=== PATIENT | male | born 1950 | race Caucasian/White ===

== ENCOUNTER 2017-07-04 09:28 | Day surgery (SDC) | payer MEDICARE, BC ==
[~2017-07-04 09:28] MED LIST: RINGER'S SOLUTION,LACTATED 1,000 ML IV PRN
[2017-07-04 11:58] VITALS: BP 137/73
--- NOTE | 2017-07-04 12:21 | OR ---
Operative Report - Dictated Report Narrative: Date: 07/04/2017 Preop dx: Screen for colon cancer Postop dx: Diverticulosis. Polyp at 30 cm. Procedure: Total colonoscopy with biopsy sessile polyp at 30 cm Staff surgeon: Roland Anglin MD Anesthesia: MAC per [employer] EBL: minimal Specimen: Polyp at 30 cm Description: After informed consent and appropriate sedation the patient was placed in the left lateral decubitus position. A flexible fiberoptic video colonoscope was introduced and advanced under direct vision without difficulty to the cecum. The usual landmarks were identified. Preparation was good and good views were obtained. The findings were of a normal cecum, ascending colon, hepatic flexure, transverse colon, splenic flexure, descending colon. The sigmoid had moderately severe diverticulosis. A small 5mm sessile polyp was biopsied at 30 cm with cold forceps then destroyed with cautery. The rectum was normal. The mucosal color, vasculature and texture were normal throughout. No suspicious masses were seen. The patient tolerated the procedure well without apparent complications and was discharged from the endoscopy suite in stable condition.
== END 2017-07-04 09:29 | disposition home or self-care (01) ==
LOC: AMB 09:28
PROVIDERS: ATTEND Specialist
PROC: 0DBE8ZX Excision of Large Intestine, Via Natural or Artificial Opening Endoscopic, Diagnostic (ICD-10-PCS; principal; 2017-07-04 10:30)
DX: Z12.11 Encounter for screening for malignant neoplasm of colon (principal); K63.5 Polyp of colon; K57.30 Diverticulosis of large intestine without perforation or abscess without bleeding; K21.9 Gastro-esophageal reflux disease without esophagitis; E78.5 Hyperlipidemia, unspecified; G47.33 Obstructive sleep apnea (adult) (pediatric); E66.9 Obesity, unspecified; Z68.38 Body mass index [BMI] 38.0-38.9, adult